=== PATIENT | female | born 1955 | race Caucasian/White ===

== ENCOUNTER → 2020-05-19 12:36 | Outpatient (CLI) | payer MEDICARE, OTHER, SELFPAY ==
--- NOTE | 2020-05-19 12:53 | DI.CT.S_ITS ---
PROCEDURE: CT CHEST WO CON INDICATIONS: Solitary pulmonary nodule TECHNIQUE: Noncontrast 5 mm thick sections acquired from the pulmonary apices to the posterior costophrenic angles. 1 mm lung window, 5 mm thick coronal and sagittal and 7 mm axial MIP reformats were then acquired. For radiation dose reduction, the following was used: automated exposure control, adjustment of mA and/or kV according to patient size. COMPARISON: [facility], , CT LUNG CANCER SCREENING, 12/12/2018, 10:08. [facility], CT LUNG CANCER SCREENING, 11/19/2017, 10:10. [facility], CT THORAX W/O CONTRAST, 05/21/2019, 10:06. It is noted that these prior exams contain report only in images have not been made available for comparison review. FINDINGS: Image quality: Excellent. Lungs and pleura: No acute air space opacities. No pleural effusions or pneumothorax. Central and peripheral airways are patent and normal in caliber. Previously noted lingular consolidation tree-in-bud opacities are not visualized. Mediastinum: Heart size is normal. No pericardial effusion. No mediastinal adenopathy by size criteria. 9 mm precarinal lymph node is noted. Thoracic aorta and central pulmonary arteries are normal in size. Esophagus is normal in caliber. No hiatal hernia. Bones and chest wall: No suspicious bony lesions. No vertebral body compression fractures. No axillary or supraclavicular adenopathy by size criteria. Thyroid gland is unremarkable. Breast implants are noted. Abdomen: Visualized upper abdominal solid organs and bowel loops appear normal in the absence of contrast. IMPRESSION: 1. Previously reported lingular and right upper lobe opacities are no longer visualized. It is noted that prior exam contains only report and there is no direct image comparison, as they have not been made available for review. If and when they do become available, they will be compared and an addendum will be issued. Dictated by: Brie Campbell M.D. on 05/27/2020 at 10:27 Approved by: Brie Campbell M.D. on 05/27/2020 at 10:45
== END ==
PROVIDERS: PCP Physician Assistant; Referring Provider Physician Assistant; Visit Provider Physician Assistant
DX: R91.1 Solitary pulmonary nodule (principal)
CPT/HCPCS: 71250

== ENCOUNTER → 2020-05-27 07:28 | Outpatient (CLI) | payer MEDICARE, OTHER, SELFPAY ==
[2020-05-27 08:38] LABS: Add Manual Diff / Slide Review NO; Basophils Absolute Auto 0 /uL (0-100); Basophils Percent Auto 0.6 % (0-2); Eosinophils Absolute Auto 100 /uL (0-450); Eosinophils Percent Auto 2.1 % (2-4); Hematocrit 43.3 % (36-46); Lymphocytes Absolute Auto 1400 /uL (1100-4500); Lymphocytes Percent Auto 25.1 % (25-40); Mean Corpuscular HGB Conc 32.3 % (30-36); Mean Corpuscular Hemoglobin 32.5 PG (26-34); Mean Corpuscular Volume 100.6 fL (80-100); Monocytes Absolute Auto 500 /uL (0-900); Monocytes Percent Auto 9.1 % (3-14); Neutrophils Absolute Auto 3500 /uL (1500-7000); Neutrophils Percent Auto 63.1 % (50-75); Platelet Count 301 X10^3/uL (150-400); Red Cell Distribution Width 12.6 % (11.6-14.8); White Blood Cell Count 5.5 X10^3/uL (4.5-11.0)
[2020-05-27 08:49] LABS: Alanine Aminotransferase 18 IU/L (<35); Albumin 4.3 g/dL (3.5-5.0); Albumin Globulin Ratio 1.5 (1.0-2.8); Alkaline Phosphatase 76 U/L (38-126); Aspartate Aminotransferase 30 IU/L (14-36); BUN Creatinine Ratio 39.3 (6-22); Bilirubin Total 0.3 mg/dL (0.2-1.3); Blood Urea Nitrogen 24 mg/dL (7-17); Calcium 9.3 mg/dL (8.4-10.2); Carbon Dioxide 28 mmol/L (22-32); Chloride 109 mmol/L (98-107); Cholesterol 147 mg/dL (140-199); Estimated Glomerular Filt Rate > 60.0 mL/min (>60); Globulin 2.8 g/dL (1.7-4.1); Glucose 103 mg/dL (80-110); HDL Cholesterol 63 mg/dL (40-60); HEMOLYSIS < 15 (0-50); LDL Cholesterol Calculated 73 mg/dL (<100); Potassium 4.4 mmol/L (3.4-5.1); Sodium 138 mmol/L (137-145); Total Protein 7.1 g/dL (6.3-8.2); Triglycerides 55 mg/dL (35-150)
[2020-05-27 09:05] LABS: Vitamin D 25 Hydroxy (D3) 44.8 ng/mL (30.0-100.0)
[2020-05-27 09:18] LABS: TSH w/ Reflex to FT4 6.13 uIU/mL (0.47-4.68)
[2020-05-27 09:36] LABS: Vitamin B12 614 pg/mL (239-931)
[2020-05-27 10:04] LABS: Free T4, Direct Thyroxine 1.02 ng/dL (0.78-2.19)
== END ==
PROVIDERS: PCP Physician Assistant; Referring Provider Physician Assistant; Visit Provider Physician Assistant
DX: E03.9 Hypothyroidism, unspecified (principal); E78.2 Mixed hyperlipidemia; E55.9 Vitamin D deficiency, unspecified; E53.8 Deficiency of other specified B group vitamins
CPT/HCPCS: 36415; 80053; 80061; 82306; 82607; 84439; 84443; 85025

== ENCOUNTER → 2022-09-14 12:13 | Outpatient (CLI) | payer MEDICARE, OTHER, SELFPAY ==
[2022-09-14 13:45] LABS: Influenza A - CEPHEID Flu A NEGATIVE (NEGATIVE); Influenza B - CEPHEID Flu B NEGATIVE (NEGATIVE); Respiratory Syncytial Virus Negative (Negative)
[2022-09-14 13:55] LABS: COVID-19 CEPHEID 4-PLEX PCR Negative (Negative)
== END ==
PROVIDERS: PCP Physician Assistant; Visit Provider Physician Assistant
DX: R05.1 Acute cough (principal)
CPT/HCPCS: 0241U

== ENCOUNTER → 2023-05-27 09:28 | Outpatient (CLI) | payer MEDICARE, SELFPAY | PROVIDERS: PCP Physician Assistant; Visit Provider Physician Assistant | DX: R30.0 Dysuria (principal) | CPT/HCPCS: 87077; 87086; 87186 ==

== ENCOUNTER → 2025-01-08 08:52 | Outpatient (CLI) | payer MEDICARE, OTHER, SELFPAY ==
[2025-01-08 12:08] LABS: Influenza A - CEPHEID Flu A NEGATIVE (NEGATIVE); Influenza B - CEPHEID Flu B NEGATIVE (NEGATIVE)
[2025-01-08 13:02] LABS: COVID-19 CEPHEID 4-PLEX PCR Negative (Negative)
== END ==
PROVIDERS: PCP Physician Assistant; Visit Provider Chiropractor
DX: J02.9 Acute pharyngitis, unspecified (principal)
CPT/HCPCS: 87637

== ENCOUNTER → 2025-03-08 11:21 | Outpatient (CLI) | payer MEDICARE, OTHER, SELFPAY ==
--- NOTE | 2025-03-08 11:23 | DI.CT.S_ITS ---
PROCEDURE: CT CHEST WO CON INDICATIONS: Other nonspecific abnormal finding of lung field TECHNIQUE: Noncontrast 5 mm thick sections acquired from the pulmonary apices to the posterior costophrenic angles. 1 mm lung window, 5 mm thick coronal and sagittal and 7 mm axial MIP reformats were then acquired. For radiation dose reduction, the following was used: automated exposure control, adjustment of mA and/or kV according to patient size. COMPARISON: Outside Facility, CT, CT CHEST WO CON, 12/03/2023, 13:14. Outside Facility, CT, CT LUNG LOW DOSE SCREENING, 12/03/2024, 9:47. FINDINGS: Quality: Diagnostic. Lungs: Parenchyma: Previously identified nodules have either resolved, decreased in size or become less conspicuous on the current examination. Residual faint ground-glass nodules and fully calcified pulmonary nodules. Scarring or atelectasis in the lingula and right middle lobe similar to prior. Large airways are patent. Pleura: No pneumothorax. No pleural effusion. Mediastinum: Thyroid: Unremarkable. Esophagus: Unremarkable. Heart: Normal size. Mild coronary calcification. Vasculature: No aortic aneurysm. Trace calcified plaques. Lymphatic: No adenopathy. Chest wall: Bilateral breast implants. Upper abdomen: Unremarkable. Bones: No aggressive osseous lesion. Multilevel degenerative changes. IMPRESSION: Resolution of several previously seen pulmonary nodules and decreased size/conspicuity of others. Resume annual lung screening according to clinical criteria. Dictated by: Ti Catherine M.D. on 03/08/2025 at 13:20 Approved by: Ti Catherine M.D. on 03/08/2025 at 13:28
== END ==
LOC: CT 11:22
PROVIDERS: Family Provider Family Medicine; PCP Family Medicine; Referring Provider Physician Assistant; Visit Provider Physician Assistant
DX: R91.8 Other nonspecific abnormal finding of lung field (principal)
CPT/HCPCS: 71250

== ENCOUNTER → 2025-03-17 10:27 | Outpatient (CLI) | payer MEDICARE, OTHER, SELFPAY ==
[2025-03-17 14:26] LABS: Appearance Urine UA CLEAR; Bilirubin Urine UA NEGATIVE (NEGATIVE); Color Urine UA YELLOW; Glucose Urine UA NEGATIVE (Negative); Ketones Urine UA NEGATIVE (NEGATIVE); Leukocyte Esterase Urine UA NEGATIVE (NEGATIVE); Nitrite Urine UA NEGATIVE (Negative); Occult Blood Urine UA NEGATIVE (Negative); Protein Urine UA NEGATIVE (Negative); Specific Gravity Urine UA <=1.005 (1.000-1.035); Urobilinogen Urine UA 0.2 E.U./dL (0.2); pH Urine UA 5.5 (4.5-8.0)
[2025-03-17 14:32] LABS: Culture Indicated Urine Cult Not Indicated
== END ==
PROVIDERS: Family Provider Family Medicine; PCP Family Medicine; Visit Provider Obstetrics & Gynecology Gynecology
DX: N81.11 Cystocele, midline (principal); N95.2 Postmenopausal atrophic vaginitis; R33.9 Retention of urine, unspecified; N81.9 Female genital prolapse, unspecified; Z98.890 Other specified postprocedural states
CPT/HCPCS: 81001